=== PATIENT | female | born 1985 | race Caucasian/White ===

== ENCOUNTER 2016-05-18 21:19 | Emergency (ER) | payer BC, MEDICAID ==
[2016-05-18 22:13] VITALS: BP 132/85
[2016-05-18] MEDS ORDERED: Iopamidol 612 MG/ML 100 ML Bottle IV SCH (22:30)
[2016-05-18] MEDS ORDERED: Sodium Chloride 0.9% 80 ML IV SCH (22:30)
[2016-05-18] MEDS: Sodium Chloride 0.9% 10 ML Syringe FLUSH PRN ×2 (22:36→22:53)
--- NOTE | 2016-05-19 00:26 | EDM.PDOC ---
ED HPI ENT - General Chief Complaint: ENT Problem Stated Complaint: ILLNESS Time Seen by Provider: 05/18/16 22:12 Source: Reports: Patient History Limitations: Reports: No limitations - History of Present Illness INITIAL COMMENTS - FREE TEXT/NARRATIVE: History of present illness: [30-year-old female is presenting with complaints of a sore throat and lymphadenopathy of her neck. She's been on Zithromax and Keflex to treat this and feels that she is not getting better and is getting more swollen. She had a fever of 103 last night to this. She denies any shortness of breath or swallowing difficulties. She denies any dysphasia.] Review of systems: As per history of present illness and below otherwise all systems reviewed and negative. Past medical history: As per history of present illness and as reviewed below otherwise noncontributory. Surgical history: As per history of present illness and as reviewed below otherwise noncontributory. Social history: No reported history of drug or alcohol abuse. Family history: As per history of present illness and as reviewed below otherwise noncontributory. Physical exam: HEENT: Atraumatic, normocephalic, pupils reactive, negative for conjunctival pallor or scleral icterus, mucous membranes moist, throat clear, neck supple but bulky, with some shotty anterior lymphadenopathy nontender, trachea midline. Lungs: Clear to auscultation, breath sounds equal bilaterally, chest nontender. Heart: S1S2, regular, negative for clicks, rubs, or JVD. Abdomen: Soft, nondistended, nontender. Negative for masses or hepatosplenomegaly. Negative for costovertebral tenderness. Pelvis: Stable nontender. Genitourinary: Deferred. Rectal: Deferred. Extremities: Atraumatic, negative for cords or calf pain. Neurovascular unremarkable. Neuro: Awake, alert, oriented. Cranial nerves II through XII unremarkable. Cerebellum unremarkable. Motor and sensory unremarkable throughout. Exam nonfocal. Diagnostics: [CBC complete panel and a soft tissue neck CT were obtained. CT of the neck was essentially unremarkable with no evidence of pus pockets or abscess] Therapeutics: [] Impression: [Mild pharyngitis with lymphadenitis] Plan: [Continue with the Keflex but I'm putting her on tapering doses of prednisone to help with the inflammation she's experiencing from this illness.] Definitive disposition and diagnosis as appropriate pending reevaluation and review of above. - Related Data Allergies/ADRs: Allergies Allergy/AdvReac Type Severity Reaction Status Date / Time codeine Allergy Hives Verified 09/27/15 15:01 Penicillins Allergy Hives Verified 09/27/15 15:01 Home Meds: Home Meds Metoprolol Tartrate [Lopressor] 12.5 mg PO BID 01/22/14 [History] Amitriptyline [Elavil] 10 mg PO BEDTIME 08/11/14 [History] Aspirin [Rayne Chewable Aspirin] 81 mg PO DAILY 08/11/14 [History] Acetaminophen/HYDROcodone [[place] 325-5 MG] 1 - 2 tab PO Q6H PRN #12 tab [Rx] FLUoxetine [PROzac] 60 mg PO DAILY 01/12/15 [History] clonazePAM [Clonazepam] 0.5 mg PO BID PRN 09/27/15 [History] Past Medical History Cardiovascular History: Reports: Heart valve replacement, Other (see below) Other Cardiovascular History: Congenital heart defect Genitourinary History: Reports: Renal calculus 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: Neurological History: Reports: Migraines Psychiatric History: Reports: Anxiety, Depression Endocrine/Metabolic History: Reports: Obesity/BMI 30+ Hematologic History: Reports: Blood transfusion(s) - Infectious Disease History Infectious Disease History: Reports: Chicken pox - Past Surgical History HEENT Surgical History: Reports: Tonsillectomy Cardiovascular Surgical History: Reports: Valve replacement GI Surgical History: Reports: Cholecystectomy Social & Family History - Family History Cardiac: Reports: [place], [place] : Reports: Renal disease/insufficiency Endocrine/Metabolic: Reports: Diabetes, type II, IDDM - Tobacco Use Smoking Status *Q: Never Smoker Years of Tobacco use: 2 Used Tobacco, but Quit: Yes Month Tobacco Last Used: Second Hand Smoke Exposure: No - Caffeine Use Caffeine Use: Reports: None - Alcohol Use Days Per Week of Alcohol Use: 0 Number of Drinks Per Day: 1 Total Drinks Per Week: 0 - Recreational Drug Use Recreational Drug Use: No ED ROS ENT - Review of Systems Review Of Systems: ROS reveals no pertinent complaints other than HPI. ED EXAM, ENT - Physical Exam Exam: See Below Course - Vital Signs Last Recorded V/S: Last Vital Signs Temp 37.0 C 05/18/16 22:12 Pulse 98 05/18/16 22:12 Resp 20 05/18/16 22:12 BP 132/85 05/18/16 22:12 Pulse Ox 98 05/18/16 22:12 - Orders/Labs/Meds Orders: Active Orders 24 hr Category Date Time Status Soft Tissue Neck w Cont [CT] Stat Exams 05/18/16 22:20 Taken Iopamidol [Isovue-300 (61%)] Med 05/18/16 22:30 Active 100 ml IV . DIRECTED Sodium Chloride 0.9% [Normal Saline] 80 ml Med 05/18/16 22:30 Active IV ASDIRECTED Sodium Chloride 0.9% [Saline Flush] Med 05/18/16 22:28 Active 10 ml FLUSH ASDIRECTED PRN Medication Orders Sodium Chloride (Normal Saline) 80 mls @ 3 mls/sec IV ASDIRECTED JESSEE Last Admin: 05/18/16 22:53 Dose: 3 mls/sec Iopamidol (Isovue-300 (61%)) 100 ml IV . DIRECTED JESSEE Last Admin: 05/18/16 22:53 Dose: 100 ml Sodium Chloride (Saline Flush) 10 ml FLUSH ASDIRECTED PRN PRN Reason: Keep Vein Open Last Admin: 05/18/16 22:53 Dose: 10 ml Admin: 05/18/16 22:36 Dose: 10 ml Labs: Laboratory Tests 05/18/16 05/18/16 Range/Units 22:19 22:32 WBC 8.8 (4.5-11.0) K/uL RBC 4.40 (3.30-5.50) M/uL Hgb 12.6 (12.0-15.0) g/dL Hct 37.8 (36.0-48.0) % MCV 86 (80-98) fL MCH 29 (27-31) pg MCHC 33 (32-36) % Plt Count 195 (150-400) K/uL Neut % (Auto) 54 (36-66) % Lymph % (Auto) 34 (24-44) % [place] % (Auto) 8 H (2-6) % Eos % (Auto) 3 (2-4) % Baso % (Auto) 1 (0-1) % Sodium 144 (140-148) mmol/L Potassium 3.7 (3.6-5.2) mmol/L Chloride 107 (100-108) mmol/L Carbon Dioxide 29 (21-32) mmol/L Anion Gap 8.5 (5.0-14.0) mmol/L BUN 13 (7-18) mg/dL Creatinine 0.9 (0.6-1.0) mg/dL Est Cr Clr Drug Dosing 86.34 mL/min Estimated GFR (MDRD) > 60 (>60) Glucose 110 H (74-106) mg/dL Calcium 8.4 L (8.5-10.1) mg/dL Total Bilirubin 0.6 (0.2-1.0) mg/dL AST 25 (15-37) U/L ALT 53 (12-78) U/L Alkaline Phosphatase 96 (46-116) U/L Total Protein 7.7 (6.4-8.2) g/dL Albumin 3.6 (3.4-5.0) g/dL Globulin 4.1 H (2.3-3.5) g/dL Albumin/Globulin Ratio 0.9 L (1.2-2.2) Meds: Medications Generic Name Dose Route Start Last Admin Trade Name Freq PRN Reason Stop Dose Admin Sodium Chloride 80 mls @ 3 mls/sec 05/18/16 22:30 05/18/16 22:53 Normal Saline IV 3 mls/sec ASDIRECTED JESSEE Administration Iopamidol 100 ml 05/18/16 22:30 05/18/16 22:53 Isovue-300 (61%) IV 100 ml . DIRECTED JESSEE Administration Sodium Chloride 10 ml 05/18/16 22:28 05/18/16 22:53 Saline Flush FLUSH 10 ml ASDIRECTED PRN Administration Keep Vein Open Departure - Departure Time of Disposition: 00:24 Disposition: Home, Self-Care 01 Condition: good Clinical Impression: Lymphadenitis Pharyngitis Qualifiers: Pharyngitis/tonsillitis etiology: unspecified etiology Qualified Code(s): J02.9 - Acute pharyngitis, unspecified Forms: ED Department Discharge Additional Instructions: Continue with your current antibiotics and we will start you on a tapering dose of prednisone but should help with the pain and inflammation that you're experiencing. Followup with her primary care doctor if you are not improving in the next week or so - My Orders Last 24 Hours: My Active Orders 05/18/16 22:20 Soft Tissue Neck w Cont [CT] Stat 05/18/16 22:28 Sodium Chloride 0.9% [Saline Flush] 10 ml FLUSH ASDIRECTED PRN 05/18/16 22:30 Iopamidol [Isovue-300 (61%)] 100 ml IV . DIRECTED Sodium Chloride 0.9% [Normal Saline] 80 ml IV ASDIRECTED - Assessment/Plan Last 24 Hours: My Active Orders 05/18/16 22:20 Soft Tissue Neck w Cont [CT] Stat 05/18/16 22:28 Sodium Chloride 0.9% [Saline Flush] 10 ml FLUSH ASDIRECTED PRN 05/18/16 22:30 Iopamidol [Isovue-300 (61%)] 100 ml IV . DIRECTED Sodium Chloride 0.9% [Normal Saline] 80 ml IV ASDIRECTED
== END 2016-05-19 00:35 | disposition home or self-care (01) ==
LOC: JP.ED 21:19
DX: I88.9 Nonspecific lymphadenitis, unspecified (principal); J02.9 Acute pharyngitis, unspecified; F41.9 Anxiety disorder, unspecified; F32.9 Major depressive disorder, single episode, unspecified; E66.9 Obesity, unspecified; Z68.41 Body mass index [BMI] 40.0-44.9, adult; Z95.2 Presence of prosthetic heart valve; Z90.49 Acquired absence of other specified parts of digestive tract; Z98.890 Other specified postprocedural states; Z79.82 Long term (current) use of aspirin; Z79.899 Other long term (current) drug therapy; Z88.0 Allergy status to penicillin; Z88.5 Allergy status to narcotic agent
CPT/HCPCS: 36415; 70491; 80053; 85025; 99284; J7030; J7050; Q9967; 99283

== ENCOUNTER 2017-05-24 11:45 | Emergency (ER) | payer BC, MEDICAID ==
[2017-05-24] MEDS ORDERED: Sodium Chloride 0.9% 1,000 ML IV SCH ×2 (12:30→14:45)
--- NOTE | 2017-05-24 12:40 | EDM.PDOC ---
ED HPI GENERAL MEDICAL PROBLEM - General Chief Complaint: General Stated Complaint: FEVER, CHEST PAIN, COUGH Time Seen by Provider: 05/24/17 12:40 Source of Information: Reports: Patient History Limitations: Reports: No Limitations - History of Present Illness INITIAL COMMENTS - FREE TEXT/NARRATIVE: pt arrived with pain in hr head. She hs had severe headaches for about 10 days. She has been doing ome vomiting. She hurts everywhere. She has had a 8 day course of doxycyline . with no improvement in the fever and body aches. She has had elvated liver enzymes in all of her lab work. Onset: Gradual, Other (Ill for 10 ) Duration: Day(s): Location: Reports: Generalized Associated Symptoms: Reports: Cough, Fever/Chills, Headaches, Malaise, Nausea/ Vomiting, Weakness - Related Data Allergies Allergy/AdvReac Type Severity Reaction Status Date / Time codeine Allergy Hives Verified 09/27/15 15:01 Penicillins Allergy Hives Verified 09/27/15 15:01 Home Meds: Home Meds Metoprolol Tartrate [Lopressor] 12.5 mg PO BID 01/22/14 [History] Amitriptyline [Elavil] 10 mg PO BEDTIME 08/11/14 [History] Aspirin [Rayne Chewable Aspirin] 81 mg PO DAILY 08/11/14 [History] Acetaminophen/HYDROcodone [[place] 325-5 MG] 1 - 2 tab PO Q6H PRN #12 tab [Rx] FLUoxetine [PROzac] 60 mg PO DAILY 01/12/15 [History] clonazePAM [Clonazepam] 0.5 mg PO BID PRN 09/27/15 [History] Past Medical History Cardiovascular History: Reports: Heart Valve Replacement, Other (See Below) Other Cardiovascular History: Congenital heart defect Genitourinary History: Reports: Renal Calculus 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: Neurological History: Reports: Migraines Psychiatric History: Reports: Anxiety, Depression Endocrine/Metabolic History: Reports: Obesity/BMI 30+ Hematologic History: Reports: Blood Transfusion(s) - Infectious Disease History Infectious Disease History: Reports: Chicken Pox - Past Surgical History Cardiovascular Surgical History: Reports: Valve Replacement Social & Family History - Family History Cardiac: Reports: [place], [place] : Reports: Renal Disease/Insufficiency Endocrine/Metabolic: Reports: Diabetes, type II, IDDM - Tobacco Use Smoking Status *Q: Never Smoker Years of Tobacco use: 2 Used Tobacco, but Quit: Yes Month/Year Tobacco Last Used: Second Hand Smoke Exposure: No - Caffeine Use Caffeine Use: Reports: None - Alcohol Use Days Per Week of Alcohol Use: 0 Number of Drinks Per Day: 1 Total Drinks Per Week: 0 - Recreational Drug Use Recreational Drug Use: No ED ROS GENERAL - Review of Systems Review Of Systems: See Below Constitutional: Reports: Fever, Chills, Malaise, Weakness, Decreased Appetite HEENT: Reports: No Symptoms Respiratory: Reports: Cough Cardiovascular: Reports: Palpitations, Other (pt felt like her heart was racing. ) Endocrine: Reports: No Symptoms GI/Abdominal: Reports: Nausea, Vomiting : Reports: No Symptoms, Urgency Musculoskeletal: Reports: Other (generalized ) Neurological: Reports: Dizziness, Headache ED EXAM, GENERAL - Physical Exam Exam: See Below Free Text/Narrative:: pt arrived with pain in head and a high temp She has had elevated liver enzymes. She has had total body aches. She did take 8 days of doxycyline for a possible tick born illness. Exam Limited By: No Limitations General Appearance: Alert, Anxious, Moderate Distress Ears: Normal TMs Nose: Normal Inspection Throat/Mouth: Normal Inspection Head: Atraumatic Neck: Normal Inspection Respiratory/Chest: No Respiratory Distress, Other (pt is hyperventilating. ) Cardiovascular: Regular Rate, Rhythm, Tachycardia, Other ( heart rate is 120. ) GI/Abdominal: Soft, Non-Tender (Female) Exam: Deferred Rectal (Female) Exam: Deferred Back Exam: Normal Inspection Extremities: Normal Inspection Neurological: Alert, Oriented, Normal Cognition Psychiatric: Anxious, Other ( crying. ) Course - Vital Signs Last Recorded V/S: Last Vital Signs Temp 101.7 C H 05/24/17 12:54 Pulse 103 H 05/24/17 14:00 Resp 24 H 05/24/17 14:00 BP 127/76 05/24/17 14:00 Pulse Ox 97 05/24/17 14:00 - Orders/Labs/Meds Orders: Active Orders 24 hr Category Date Time Status Cardiac Monitoring [RC] .As Directed Care 05/24/17 12:43 Active Abdomen Ltd [US] Stat Exams 05/24/17 15:01 Ordered CELL COUNT,CSF [BF] Stat Lab 05/24/17 14:07 Ordered CHLORIDE,CSF [BF] Stat Lab 05/24/17 14:07 COMP CULTURE BLOOD [BC] Urgent Lab 05/24/17 12:28 Received CULTURE BLOOD [BC] Urgent Lab 05/24/17 12:41 Received CULTURE CSF + SMEAR [RM] Stat Lab 05/24/17 14:19 Ordered CULTURE URINE [RM] Stat Lab 05/24/17 14:59 Ordered GLUCOSE,CSF [BF] Stat Lab 05/24/17 14:07 COMP UA W/MICROSCOPIC [URIN] Urgent Lab 05/24/17 12:25 Ordered Sodium Chloride 0.9% [Normal Saline] 1,000 ml Med 05/24/17 12:30 Active IV ASDIRECTED Sodium Chloride 0.9% [Normal Saline] 1,000 ml Med 05/24/17 12:30 Active IV ASDIRECTED Sodium Chloride 0.9% [Normal Saline] 1,000 ml Med 05/24/17 14:45 Active IV ASDIRECTED Blood Culture x2 Reflex Set [OM.PC] Urgent Oth 05/24/17 12:26 Ordered Medication Orders Sodium Chloride (Normal Saline) 1,000 mls @ 999 mls/hr IV ASDIRECTED JESSEE Last Admin: 05/24/17 14:46 Dose: 999 mls/hr Infusion: 05/24/17 14:00 Dose: 999 mls/hr Admin: 05/24/17 12:59 Dose: 999 mls/hr Sodium Chloride (Normal Saline) 1,000 mls @ 999 mls/hr IV ASDIRECTED JESSEE Last Admin: 05/24/17 14:47 Dose: 999 mls/hr Sodium Chloride (Normal Saline) 1,000 mls @ 300 mls/hr IV ASDIRECTED JESSEE Last Admin: 05/24/17 14:44 Dose: 300 mls/hr Labs: Laboratory Tests 05/24/17 05/24/17 05/24/17 Range/Units 12:25 12:28 12:28 WBC 11.1 H (4.5-11.0) K/uL RBC 4.22 (3.30-5.50) M/uL Hgb 11.7 L (12.0-15.0) g/dL Hct 35.8 L (36.0-48.0) % MCV 85 (80-98) fL MCH 28 (27-31) pg MCHC 33 (32-36) % Plt Count 171 (150-400) K/uL Neut % (Auto) 83 H (36-66) % Lymph % (Auto) 7 L (24-44) % [place] % (Auto) 10 H (2-6) % Eos % (Auto) 0 L (2-4) % Baso % (Auto) 0 (0-1) % Sodium (140-148) mmol/L Potassium (3.6-5.2) mmol/L Chloride (100-108) mmol/L Carbon Dioxide (21-32) mmol/L Anion Gap (5.0-14.0) mmol/L BUN (7-18) mg/dL Creatinine (0.6-1.0) mg/dL Est Cr Clr Drug Dosing mL/min Estimated GFR (MDRD) (>60) Glucose (74-106) mg/dL Lactic Acid (0.4-2.0) mmol/L Calcium (8.5-10.1) mg/dL Total Bilirubin (0.2-1.0) mg/dL AST (15-37) U/L ALT (12-78) U/L Alkaline Phosphatase (46-116) U/L C-Reactive Protein 9.89 H (0.0-0.3) mg/dL Total Protein (6.4-8.2) g/dL Albumin (3.4-5.0) g/dL Globulin (2.3-3.5) g/dL Albumin/Globulin Ratio (1.2-2.2) Lipase (73-393) U/L Urine Color Yellow Urine Appearance Clear Urine pH 8.0 (4.5-8.0) Ur Specific [place] 1.015 (1.008-1.030) Urine Protein Negative (NEGATIVE) mg/dL Urine Glucose (UA) Normal (NEGATIVE) mg/dL Urine Ketones Negative (NEGATIVE) mg/dL Urine Occult Blood Negative (NEGATIVE) Urine Nitrite Negative (NEGATIVE) Urine Bilirubin Negative (NEGATIVE) Urine Urobilinogen Normal (NORMAL) mg/dL Ur Leukocyte Esterase Negative (NEGATIVE) Urine RBC Not seen (0-5) Urine WBC 5-10 H (0-5) Ur Epithelial Cells Few Amorphous Sediment Few Urine Bacteria Many Urine Mucus Few CSF Tube Number CSF Volume mls CSF Appearance (CLEAR) CSF Color (COLORLESS) CSF WBC (0-5) /ul CSF RBC (0-0) /ul CSF Mononuclear Cells (54-100) % CSF Polymorphonuclear (0-7) % CSF Chloride mg/DL CSF Glucose (40-70) mg/dL CSF Total Protein (15-45) mg/dL 05/24/17 05/24/17 05/24/17 Range/Units 12:28 12:28 13:19 WBC (4.5-11.0) K/uL RBC (3.30-5.50) M/uL Hgb (12.0-15.0) g/dL Hct (36.0-48.0) % MCV (80-98) fL MCH (27-31) pg MCHC (32-36) % Plt Count (150-400) K/uL Neut % (Auto) (36-66) % Lymph % (Auto) (24-44) % [place] % (Auto) (2-6) % Eos % (Auto) (2-4) % Baso % (Auto) (0-1) % Sodium 132 L (140-148) mmol/L Potassium 4.1 (3.6-5.2) mmol/L Chloride 96 L (100-108) mmol/L Carbon Dioxide 25 (21-32) mmol/L Anion Gap 15.1 H (5.0-14.0) mmol/L BUN 10 (7-18) mg/dL Creatinine 0.8 (0.6-1.0) mg/dL Est Cr Clr Drug Dosing 92.53 mL/min Estimated GFR (MDRD) > 60 (>60) Glucose 139 H (74-106) mg/dL Lactic Acid 2.1 H (0.4-2.0) mmol/L Calcium 8.8 (8.5-10.1) mg/dL Total Bilirubin 2.1 H D (0.2-1.0) mg/dL AST 60 H D (15-37) U/L ALT 104 H (12-78) U/L Alkaline Phosphatase 122 H (46-116) U/L C-Reactive Protein (0.0-0.3) mg/dL Total Protein 7.7 (6.4-8.2) g/dL Albumin 3.3 L (3.4-5.0) g/dL Globulin 4.4 H (2.3-3.5) g/dL Albumin/Globulin Ratio 0.8 L (1.2-2.2) Lipase 83 (73-393) U/L Urine Color Urine Appearance Urine pH (4.5-8.0) Ur Specific [place] (1.008-1.030) Urine Protein (NEGATIVE) mg/dL Urine Glucose (UA) (NEGATIVE) mg/dL Urine Ketones (NEGATIVE) mg/dL Urine Occult Blood (NEGATIVE) Urine Nitrite (NEGATIVE) Urine Bilirubin (NEGATIVE) Urine Urobilinogen (NORMAL) mg/dL Ur Leukocyte Esterase (NEGATIVE) Urine RBC (0-5) Urine WBC (0-5) Ur Epithelial Cells Amorphous Sediment Urine Bacteria Urine Mucus CSF Tube Number CSF Volume mls CSF Appearance (CLEAR) CSF Color (COLORLESS) CSF WBC (0-5) /ul CSF RBC (0-0) /ul CSF Mononuclear Cells (54-100) % CSF Polymorphonuclear (0-7) % CSF Chloride mg/DL CSF Glucose (40-70) mg/dL CSF Total Protein (15-45) mg/dL 05/24/17 05/24/17 05/24/17 Range/Units 14:07 14:07 14:44 WBC (4.5-11.0) K/uL RBC (3.30-5.50) M/uL Hgb (12.0-15.0) g/dL Hct (36.0-48.0) % MCV (80-98) fL MCH (27-31) pg MCHC (32-36) % Plt Count (150-400) K/uL Neut % (Auto) (36-66) % Lymph % (Auto) (24-44) % [place] % (Auto) (2-6) % Eos % (Auto) (2-4) % Baso % (Auto) (0-1) % Sodium (140-148) mmol/L Potassium (3.6-5.2) mmol/L Chloride (100-108) mmol/L Carbon Dioxide (21-32) mmol/L Anion Gap (5.0-14.0) mmol/L BUN (7-18) mg/dL Creatinine (0.6-1.0) mg/dL Est Cr Clr Drug Dosing mL/min Estimated GFR (MDRD) (>60) Glucose (74-106) mg/dL Lactic Acid (0.4-2.0) mmol/L Calcium (8.5-10.1) mg/dL Total Bilirubin (0.2-1.0) mg/dL AST (15-37) U/L ALT (12-78) U/L Alkaline Phosphatase (46-116) U/L C-Reactive Protein (0.0-0.3) mg/dL Total Protein (6.4-8.2) g/dL Albumin (3.4-5.0) g/dL Globulin (2.3-3.5) g/dL Albumin/Globulin Ratio (1.2-2.2) Lipase (73-393) U/L Urine Color Urine Appearance Urine pH (4.5-8.0) Ur Specific [place] (1.008-1.030) Urine Protein (NEGATIVE) mg/dL Urine Glucose (UA) (NEGATIVE) mg/dL Urine Ketones (NEGATIVE) mg/dL Urine Occult Blood (NEGATIVE) Urine Nitrite (NEGATIVE) Urine Bilirubin (NEGATIVE) Urine Urobilinogen (NORMAL) mg/dL Ur Leukocyte Esterase (NEGATIVE) Urine RBC (0-5) Urine WBC (0-5) Ur Epithelial Cells Amorphous Sediment Urine Bacteria Urine Mucus CSF Tube Number 2 CSF Volume 1 mls CSF Appearance Clear (CLEAR) CSF Color Colorless (COLORLESS) CSF WBC 2 (0-5) /ul CSF RBC 5 H (0-0) /ul CSF Mononuclear Cells 100 (54-100) % CSF Polymorphonuclear 0 (0-7) % CSF Chloride 117 mg/DL CSF Glucose 87 H (40-70) mg/dL CSF Total Protein 26.4 (15-45) mg/dL Meds: Medications Generic Name Dose Route Start Last Admin Trade Name Freq PRN Reason Stop Dose Admin Sodium Chloride 1,000 mls @ 999 mls/hr 05/24/17 12:30 05/24/17 14:46 Normal Saline IV 999 mls/hr ASDIRECTED JESSEE Administration Sodium Chloride 1,000 mls @ 999 mls/hr 05/24/17 12:30 05/24/17 14:47 Normal Saline IV 999 mls/hr ASDIRECTED JESSEE Administration Sodium Chloride 1,000 mls @ 300 mls/hr 05/24/17 14:45 05/24/17 14:44 Normal Saline IV 300 mls/hr ASDIRECTED JESSEE Administration Discontinued Medications Generic Name Dose Route Start Last Admin Trade Name Freq PRN Reason Stop Dose Admin Acetaminophen 650 mg 05/24/17 12:43 05/24/17 12:54 Tylenol PO 05/24/17 12:44 650 mg NOW ONE Administration Hydromorphone HCl 0.5 mg 05/24/17 13:14 05/24/17 13:24 Dilaudid IVPUSH 05/24/17 13:15 0.5 mg ONETIME ONE Administration Lorazepam 0.5 mg 05/24/17 13:13 05/24/17 13:22 Ativan PO 05/24/17 13:14 0.5 mg ONETIME ONE Administration - Re-Assessments/Exams Free Text/Narrative Re-Assessment/Exam: 05/24/17 15:34 pt has elevated liver enzymes, her lipase is neg, her urine has bacteria in it, Her wbc is 13,000. She is on her third liter of fluid and her heart rate has come down nicely, her spinal fluid shows cells.-- 100 mononuclear . Her gram stain is neg. blood cultures, urine cultures spinal fluid cultures are all neg. Departure - Departure Time of Disposition: 15:38 Disposition: DC/Tfer to Acute Hospital 02 Condition: Fair Clinical Impression: Sepsis, Meningitis, Dehydration, Elevated liver enzymes, History of aortic valve replacement - Discharge Information Referrals: Antoinette Lyon PA [Primary Care Provider] - Forms: ED Department Discharge Care Plan Goals: more records are at [facility], transfer to [facility]. - My Orders Last 24 Hours: My Active Orders 05/24/17 12:25 UA W/MICROSCOPIC [URIN] Urgent 05/24/17 12:26 Blood Culture x2 Reflex Set [OM.PC] Urgent 05/24/17 12:28 CULTURE BLOOD [BC] Urgent 05/24/17 12:30 Sodium Chloride 0.9% [Normal Saline] 1,000 ml IV ASDIRECTED Sodium Chloride 0.9% [Normal Saline] 1,000 ml IV ASDIRECTED 05/24/17 12:41 CULTURE BLOOD [BC] Urgent 05/24/17 12:43 Cardiac Monitoring [RC] .As Directed 05/24/17 14:07 CELL COUNT,CSF [BF] Stat CHLORIDE,CSF [BF] Stat GLUCOSE,CSF [BF] Stat 05/24/17 14:19 CULTURE CSF + SMEAR [RM] Stat 05/24/17 14:45 Sodium Chloride 0.9% [Normal Saline] 1,000 ml IV ASDIRECTED 05/24/17 14:59 CULTURE URINE [RM] Stat 05/24/17 15:01 Abdomen Ltd [US] Stat - Assessment/Plan Last 24 Hours: My Active Orders 05/24/17 12:25 UA W/MICROSCOPIC [URIN] Urgent 05/24/17 12:26 Blood Culture x2 Reflex Set [OM.PC] Urgent 05/24/17 12:28 CULTURE BLOOD [BC] Urgent 05/24/17 12:30 Sodium Chloride 0.9% [Normal Saline] 1,000 ml IV ASDIRECTED Sodium Chloride 0.9% [Normal Saline] 1,000 ml IV ASDIRECTED 05/24/17 12:41 CULTURE BLOOD [BC] Urgent 05/24/17 12:43 Cardiac Monitoring [RC] .As Directed 05/24/17 14:07 CELL COUNT,CSF [BF] Stat CHLORIDE,CSF [BF] Stat GLUCOSE,CSF [BF] Stat 05/24/17 14:19 CULTURE CSF + SMEAR [RM] Stat 05/24/17 14:45 Sodium Chloride 0.9% [Normal Saline] 1,000 ml IV ASDIRECTED 05/24/17 14:59 CULTURE URINE [RM] Stat 05/24/17 15:01 Abdomen Ltd [US] Stat
[2017-05-24] MEDS ORDERED: Acetaminophen 325 MG Tab PO ONE (12:43)
[2017-05-24] MEDS: Sodium Chloride 0.9% 1,000 ML IV SCH ×2 (12:59→14:46)
--- NOTE | 2017-05-24 13:02 | CR ---
Chest 1V Frontal HISTORY: Fever, cough. Comparison: 09/27/2015. FINDINGS: Prior median sternotomy. Cardiac size and pulmonary vessels are normal. The lungs are clear . IMPRESSION: Negative AP chest.
[2017-05-24] MEDS ORDERED: LORazepam 0.5 MG Tab PO ONE ×2 (13:13→15:14)
[2017-05-24] MEDS ORDERED: HYDROmorphone 0.5 MG/0.5 ML Syringe IVPUSH ONE (13:14)
[2017-05-24 14:12] VITALS: BP 127/76
--- NOTE | 2017-05-24 14:56 | ANES ---
DATE OF SERVICE: 05/24/2017 TIME: 1345 hours. INDICATION: I was called to the emergency room by Dr. Vincent to evaluate her for a spinal tap. She has had persistent headache and needs a diagnostic spinal tap. The risks and benefits of the procedure were explained to the patient who wished to proceed with spinal tap. DESCRIPTION OF PROCEDURE: She is laid in the left lateral decubitus position. I did place a 25-gauge Pencan spinal needle to L5-S1. I did find nice clear CSF. Initial pressures were 39.5 cm of water. I then got two tubes of cerebrospinal fluid and at that time the cerebrospinal fluid stopped flowing. I consulted with Dr. Vincent and we both elected to go ahead and just use two tubes due to the fact that the 3rd tube would then be contaminated. We agreed, she sent the sample. The needle was withdrawn. A Band-Aid applied. The patient tolerated the procedure very nicely. She is going to lie flat for about an hour. Her vital signs remained stable throughout the procedure and nurse was with me the entire period of procedure. There were no anesthesia complications noted. Greyson Angel CRNA /[id number]
[2017-05-24] MEDS ORDERED: Ibuprofen 400 MG Tab PO ONE (16:34)
[2017-05-24] MEDS ORDERED: Acetaminophen 650 MG Supp RECTAL ONE (16:35)
[2017-05-24] MEDS ORDERED: LORazepam 2 MG/ML SDV IVPUSH ONE (16:44)
[2017-05-24] MEDS ORDERED: Ondansetron 4 MG/2 ML SDV IVPUSH ONE (16:45)
--- NOTE | 2017-05-25 08:55 | US ---
Abdomen Ltd HISTORY: Elevated liver enzymes and bilirubin. COMPARISON: CT scan 09/10/2013. FINDINGS: There is diffuse fatty infiltration of liver. No focal liver lesions seen. Gallbladder has been removed. Common bile duct measures 6 mm. The pancreas and right kidney appear normal. Inferior v jaun cava is patent. No ascites. Impression: 1. Diffuse fatty infiltration of liver. Prior cholecystectomy. 2. The remainder the study is unremarkable.
== END 2017-05-24 17:02 ==
LOC: JP.ED 11:45
DX: A41.9 Sepsis, unspecified organism (principal); G03.9 Meningitis, unspecified; E86.0 Dehydration; R74.8 Abnormal levels of other serum enzymes; Z88.5 Allergy status to narcotic agent; Z88.0 Allergy status to penicillin; Z79.82 Long term (current) use of aspirin; Z79.899 Other long term (current) drug therapy; Z87.891 Personal history of nicotine dependence; Z95.2 Presence of prosthetic heart valve
CPT/HCPCS: 36415; 71045; 76705; 80053; 81001; 82438; 82945; 83605; 83690; 84157; 85025; 86140; 87040; 87070; 87077; 87086; 87186; 87205; 89050; 96361; 96374; 96375; 99285; A9270; J1170; J2060; J2405; J7040

== ENCOUNTER 2017-08-27 17:50 | Emergency (ER) | payer BC, MEDICAID ==
--- NOTE | 2017-08-27 18:29 | EDM.PDOC ---
ED HPI GENERAL MEDICAL PROBLEM - General Chief Complaint: Chest Pain Stated Complaint: STERNUM PAIN/OPEN HEART SURGERY Time Seen by Provider: 08/27/17 18:33 Source of Information: Reports: Patient History Limitations: Reports: No Limitations - History of Present Illness INITIAL COMMENTS - FREE TEXT/NARRATIVE: PT WAS TRANSFERED TO [place] IN june WITH A ENDOCARDITIS. sHE WAS FOUND TO HAVE A ABCESS ON THE VALVE AND NEEDED REPEAT SURGERY. sHE NOW HAS A MECHANIAL VALVE. sHE CONTINUES TO HAVE CHEST WALL PAIN Onset: Gradual, Other ( tHIS HAS GONE ON SINCE HER SURGERY. sHE IS NOW BACK AT WORK AT THE [employer] [facility] [place]. ) Duration: Hour(s):, Other (PT IS OUT OF HER PAIN MEDS AND SHJE DISD TRY TO REACH [facility]) Location: Reports: Chest Associated Symptoms: Reports: Chest Pain Mid-Sternal Pain Score (Numeric/FACES): 5 - Related Data Allergies Allergy/AdvReac Type Severity Reaction Status Date / Time codeine Allergy Hives Verified 07/10/17 12:27 Penicillins Allergy Hives Verified 07/10/17 12:27 Home Meds: Home Meds Metoprolol Tartrate [Lopressor] 50 mg PO BID 01/22/14 [History] Amitriptyline [Elavil] 10 mg PO BEDTIME 08/11/14 [History] FLUoxetine [PROzac] 60 mg PO DAILY 01/12/15 [History] clonazePAM [Clonazepam] 0.5 mg PO TID 09/27/15 [History] Calcium Carbonate [Calcium] 500 mg PO Q4H PRN 06/19/17 [History] Cyclobenzaprine [Flexeril] 10 mg PO TID PRN 06/19/17 [History] Furosemide [Lasix] 40 mg PO BID 06/19/17 [History] Hydrocodone/Acetaminophen [[place] 10-325 Tablet] 1 each PO Q4H PRN 06/19/17 [ History] Lisinopril 10 mg PO DAILY 06/19/17 [History] Omeprazole 20 mg PO DAILY 06/19/17 [History] Potassium Chloride 20 meq PO BID 06/19/17 [History] Warfarin [Coumadin] 5 mg PO DAILY 06/19/17 [History] metFORMIN [Glucophage XR] 500 mg PO DAILY 06/19/17 [History] Past Medical History Cardiovascular History: Reports: Heart Valve Replacement, Other (See Below) Other Cardiovascular History: Congenital heart defect Genitourinary History: Reports: Renal Calculus 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: Neurological History: Reports: Migraines Psychiatric History: Reports: Anxiety, Depression Endocrine/Metabolic History: Reports: Obesity/BMI 30+ Hematologic History: Reports: Blood Transfusion(s) - Infectious Disease History Infectious Disease History: Reports: Chicken Pox - Past Surgical History HEENT Surgical History: Reports: Tonsillectomy Cardiovascular Surgical History: Reports: Valve Replacement GI Surgical History: Reports: Cholecystectomy Social & Family History - Family History Cardiac: Reports: [place] : Reports: Renal Disease/Insufficiency Endocrine/Metabolic: Reports: Diabetes, type II, IDDM - Tobacco Use Smoking Status *Q: Never Smoker - Caffeine Use Caffeine Use: Reports: Coffee - Recreational Drug Use Recreational Drug Use: No ED ROS GENERAL - Review of Systems Review Of Systems: See Below Constitutional: Reports: No Symptoms, Other (PT IS DOING OK AND HAS BEEN STABLE. sHE DOES REMAIN ON CEPHELEXIN) HEENT: Reports: No Symptoms Respiratory: Reports: No Symptoms Cardiovascular: Reports: No Symptoms Endocrine: Reports: No Symptoms GI/Abdominal: Reports: No Symptoms : Reports: No Symptoms Musculoskeletal: Reports: No Symptoms Skin: Reports: No Symptoms ED EXAM, GENERAL - Physical Exam Exam: See Below Free Text/Narrative:: pT ARRIVED WITH CHEST WALL PAIN WHICH HAS BEEN PERSISTENT SINCE HER SURGERY. Exam Limited By: No Limitations General Appearance: Alert, Anxious, Mild Distress Ears: Normal TMs Nose: Normal Inspection Throat/Mouth: Normal Inspection Head: Atraumatic Neck: Normal Inspection Respiratory/Chest: No Respiratory Distress Cardiovascular: Regular Rate, Rhythm, Other ( TYPICAL VALVULAR SOUND) GI/Abdominal: Soft, Non-Tender Rectal (Female) Exam: Deferred Back Exam: Normal Inspection Extremities: Normal Inspection Neurological: Alert, Oriented, Normal Cognition Psychiatric: Normal Affect Course - Vital Signs Last Recorded V/S: Last Vital Signs Temp 36.2 C 08/27/17 18:03 Pulse 81 08/27/17 18:03 Resp 16 08/27/17 18:03 BP 129/76 08/27/17 18:03 Pulse Ox 96 08/27/17 18:03 Departure - Departure Time of Disposition: 18:28 Disposition: Home, Self-Care 01 Condition: Fair Clinical Impression: Chest wall pain, H/O aortic valve replacement Referrals: Antoinette Lyon PA [Primary Care Provider] - Forms: ED Department Discharge Care Plan Goals: CONT TOFOLLOW WITH [facility] Q6H PRN FOR PAIN #8
[2017-08-27 18:52] VITALS: BP 100/55
== END 2017-08-27 18:54 | disposition home or self-care (01) ==
LOC: JP.ED 17:50
DX: R07.89 Other chest pain (principal); Z95.2 Presence of prosthetic heart valve; F41.9 Anxiety disorder, unspecified; F32.9 Major depressive disorder, single episode, unspecified; Z79.01 Long term (current) use of anticoagulants; Z79.899 Other long term (current) drug therapy; Z88.8 Allergy status to other drugs, medicaments and biological substances; Z88.5 Allergy status to narcotic agent; Z88.0 Allergy status to penicillin
CPT/HCPCS: 99285

== ENCOUNTER 2019-02-27 10:20 | Emergency (ER) | payer BC, MEDICAID ==
--- NOTE | 2019-02-27 11:11 | EDM.PDOC ---
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 Over the last 3 weeks she has had persistent recurring fevers, and has been on 2 courses of Zithromax as well as her chronic cephalexin. She felt better during the first course of Zithromax, the second she did not have much improvement. She currently has a runny nose, upper chest congestion and a cough, headache, and generalized body aches especially the right knee. No nausea or vomiting, no significant shortness of breath. She is very anxious because of her history. 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 She has been screened for influenza and strep throat over the last 3 weeks. Her temperature was 103 this morning, however it is broken and she is now diaphoretic with a normal temperature. Other vitals are normal as well. Onset: Unknown/Unsure Associated Symptoms: Reports: Cough, Fever/Chills, Headaches, Malaise, Other ( Rhinitis) Generalized Pain Score (Numeric/FACES): 10 - Related Data Allergies Allergy/AdvReac Type Severity Reaction Status Date / Time Penicillins Allergy Hives Verified 02/27/19 10:43 Home Meds: Home Meds Metoprolol Tartrate [Lopressor] 50 mg PO BID 01/22/14 [History] Amitriptyline [Elavil] 10 mg PO BEDTIME 08/11/14 [History] FLUoxetine [PROzac] 20 mg PO DAILY 01/12/15 [History] clonazePAM [Clonazepam] 0.5 mg PO TID PRN 09/27/15 [History] Cyclobenzaprine [Flexeril] 10 mg PO TID PRN 06/19/17 [History] Furosemide [Lasix] 10 mg PO DAILY 06/19/17 [History] Hydrocodone/Acetaminophen [[place] 10-325 Tablet] 1 each PO Q4H PRN 06/19/17 [ History] Lisinopril 10 mg PO DAILY 06/19/17 [History] Omeprazole 20 mg PO DAILY 06/19/17 [History] Warfarin [Coumadin] 5 mg PO DAILY 06/19/17 [History] metFORMIN [Glucophage XR] 500 mg PO DAILY 06/19/17 [History] Aspirin [Adult Aspirin] 81 mg PO DAILY 12/10/17 [History] Warfarin Sodium [Coumadin] 7.5 mg PO DAILY 02/27/19 [History] Past Medical History Cardiovascular History: Reports: Heart Valve Replacement, Other (See Below) Other Cardiovascular History: Congenital heart defect endocarditis 2 years ago Genitourinary History: Reports: Renal Calculus 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: Neurological History: Reports: Migraines Psychiatric History: Reports: Anxiety, Depression Endocrine/Metabolic History: Reports: Obesity/BMI 30+ Hematologic History: Reports: Blood Transfusion(s) - Infectious Disease History Infectious Disease History: Reports: Chicken Pox - Past Surgical History HEENT Surgical History: Reports: Tonsillectomy Cardiovascular Surgical History: Reports: Valve Replacement GI Surgical History: Reports: Cholecystectomy Social & Family History - Family History Cardiac: Reports: [place] : Reports: Renal Disease/Insufficiency Endocrine/Metabolic: Reports: Diabetes, type II, IDDM - Tobacco Use Smoking Status *Q: Never Smoker Second Hand Smoke Exposure: No - Caffeine Use Caffeine Use: Reports: Coffee - Recreational Drug Use Recreational Drug Use: No ED ROS GENERAL - Review of Systems Review Of Systems: See Below Constitutional: Reports: Fever, Chills, Malaise HEENT: Reports: Rhinitis. Denies: Ear Pain, Throat Pain Respiratory: Reports: Cough, Sputum Cardiovascular: Reports: Chest Pain (Especially with coughing) GI/Abdominal: Reports: No Symptoms Musculoskeletal: Reports: Other (Right knee has been hurting for the last 2 days ) Skin: Reports: Diaphoresis Neurological: Reports: Headache Psychiatric: Reports: Anxiety ED EXAM, GENERAL - Physical Exam Exam: See Below Exam Limited By: No Limitations General Appearance: Alert, No Apparent Distress Eye Exam: Bilateral Eye: Normal Inspection Throat/Mouth: Normal Inspection Head: Atraumatic Neck: Supple Respiratory/Chest: No Respiratory Distress, Lungs Clear, Other (Large well- healed surgical scar on the anterior chest) Cardiovascular: Regular Rate, Rhythm, Systolic Murmur (Faint systolic murmur and a click from the artificial valve is heard) Extremities: Normal Inspection, Other (Some mild tenderness to palpation around the right knee but no objective visual findings, no effusion, redness, swelling or warmth) Course - Vital Signs Last Recorded V/S: Last Vital Signs Temp 98.1 F 02/27/19 14:07 Pulse 80 02/27/19 14:07 Resp 16 02/27/19 14:07 BP 89/47 L 02/27/19 14:07 Pulse Ox 97 02/27/19 14:07 - Orders/Labs/Meds Orders: Active Orders 24 hr Category Date Time Status Echo Comp wo Cont [US] Stat Exams 02/27/19 12:05 Taken CULTURE BLOOD [BC] Urgent Lab 02/27/19 11:10 Received CULTURE BLOOD [BC] Urgent Lab 02/27/19 11:17 Received Blood Culture x2 Reflex Set [OM.PC] Urgent Oth 02/27/19 10:58 Ordered Labs: Laboratory Tests 02/27/19 02/27/19 Range/Units 11:17 11:17 WBC 7.4 (4.5-11.0) K/uL RBC 3.41 (3.30-5.50) M/uL Hgb 9.8 L (12.0-15.0) g/dL Hct 31.0 L (36.0-48.0) % MCV 91 (80-98) fL MCH 29 (27-31) pg MCHC 32 (32-36) % Plt Count 181 (150-400) K/uL Neut % (Auto) 80 H (36-66) % Lymph % (Auto) 11 L (24-44) % [place] % (Auto) 8 H (2-6) % Eos % (Auto) 0 L (2-4) % Baso % (Auto) 0 (0-1) % Sodium 137 L (140-148) mmol/L Potassium 3.7 (3.6-5.2) mmol/L Chloride 100 (100-108) mmol/L Carbon Dioxide 27 (21-32) mmol/L Anion Gap 13.7 (5.0-14.0) mmol/L BUN 10 (7-18) mg/dL Creatinine 0.8 (0.6-1.0) mg/dL Est Cr Clr Drug Dosing 90.84 mL/min Estimated GFR (MDRD) > 60 (>60) Glucose 99 (74-106) mg/dL Calcium 8.3 L (8.5-10.1) mg/dL Total Bilirubin 1.1 H D (0.2-1.0) mg/dL AST 25 (15-37) U/L ALT 27 (12-78) U/L Alkaline Phosphatase 70 (46-116) U/L Total Protein 7.2 (6.4-8.2) g/dL Albumin 3.3 L (3.4-5.0) g/dL Globulin 3.9 H (2.3-3.5) g/dL Albumin/Globulin Ratio 0.9 L (1.2-2.2) Meds: Medications Discontinued Medications Generic Name Dose Route Start Last Admin Trade Name Freq PRN Reason Stop Dose Admin Hydromorphone HCl 1 mg 02/27/19 11:30 02/27/19 11:38 Dilaudid IM 02/27/19 11:31 1 mg ONETIME ONE Administration - Re-Assessments/Exams Free Text/Narrative Re-Assessment/Exam: 02/27/19 11:11 CBC CMP influenza antigens and blood cultures were obtained. Chest x-ray was shot recently so will not be repeated with a normal exam. 02/27/19 11:31 Influenza antigens are negative, white count is normal. Hemoglobin is 9.8, clinic records will be obtained for recent levels. 02/27/19 11:36 Clinic records were received, white count has been stable and normal. 2 weeks ago hemoglobin was 12.5, 8 days ago 11.3 and now 9.8 which is a disturbing trend. Awaiting for the remaining labs. 02/27/19 12:06 Had a long conversation with infectious disease, he also feels this is likely viral. An echocardiogram was recommended, fortunately she is here and available and can do one within the next hour to an hour and a half. This was ordered. Patient was given 1 mg of IM Dilaudid for her headache which was rapidly improving. 02/27/19 14:06 We were able to get an echocardiogram urgently, this was normal. She felt better after the Dilaudid as well. She was observed for almost 4 hours, fever did not return and she developed no shortness of breath. She will be discharged with viral bronchitis, and I encouraged her to return if worsening such as abdominal pain or active bleeding such as dark stools, otherwise recheck hemoglobin on Sunday. Departure - Departure Time of Disposition: 14:20 Disposition: Home, Self-Care 01 Clinical Impression: Viral bronchitis - Discharge Information Instructions: Acute Bronchitis, Adult, [id number] Referrals: Antoinette Lyon PA [Primary Care Provider] - Forms: ED Department Discharge Care Plan Goals: Continue with your current medications, cold medicines as needed and fever control for comfort. Return anytime if worsening such as increased pain, abdominal pain, dark stools or vomiting. Otherwise recheck on Sunday. Get plenty of rest and fluids. Sepsis Event Note - Evaluation Sepsis Screening Result: No Definite Risk - Focused Exam Vital Signs: Vital Signs Temp Pulse Resp BP Pulse Ox 02/27/19 14:07 98.1 F 80 16 89/47 L 97 02/27/19 12:03 97.1 F 77 16 97/57 L 97 02/27/19 10:38 98.9 F 85 24 H 105/53 L 94 L Date Exam was Performed: 02/27/19 Time Exam was Performed: 15:11 - My Orders Last 24 Hours: My Active Orders 02/27/19 10:58 Blood Culture x2 Reflex Set [OM.PC] Urgent 02/27/19 11:10 CULTURE BLOOD [BC] Urgent 02/27/19 11:17 CULTURE BLOOD [BC] Urgent 02/27/19 12:05 Echo Comp wo Cont [US] Stat - Assessment/Plan Last 24 Hours: My Active Orders 02/27/19 10:58 Blood Culture x2 Reflex Set [OM.PC] Urgent 02/27/19 11:10 CULTURE BLOOD [BC] Urgent 02/27/19 11:17 CULTURE BLOOD [BC] Urgent 02/27/19 12:05 Echo Comp wo Cont [US] Stat
[2019-02-27] MEDS ORDERED: HYDROmorphone 1 MG/ML Syringe IM ONE (11:30)
[2019-02-27 14:08] VITALS: BP 89/47; PULSE 80
== END 2019-02-27 14:20 | disposition home or self-care (01) ==
LOC: JP.ED 10:20
DX: J20.8 Acute bronchitis due to other specified organisms (principal); F41.9 Anxiety disorder, unspecified; F32.9 Major depressive disorder, single episode, unspecified; E66.9 Obesity, unspecified; Z68.39 Body mass index [BMI] 39.0-39.9, adult; Z88.0 Allergy status to penicillin; Z79.899 Other long term (current) drug therapy; Z79.01 Long term (current) use of anticoagulants; Z79.82 Long term (current) use of aspirin
CPT/HCPCS: 36415; 80053; 85025; 87040; 87077; 87804; 87804-59; 93306; 96372; 99284-25; J1170

== ENCOUNTER 2019-02-28 02:34 | Emergency (ER) | payer BC, MEDICAID ==
[2019-02-28] MEDS ORDERED: cefTRIAXone 2 GM in Sodium Chloride 0.9% 50 ML IV ONE (02:36)
--- NOTE | 2019-02-28 02:45 | EDM.PDOC ---
ED HPI GENERAL MEDICAL PROBLEM - General Chief Complaint: Possible Sepsis Stated Complaint: MEDICAL Time Seen by Provider: 02/28/19 02:40 Source of Information: Reports: Patient History Limitations: Reports: No Limitations - History of Present Illness INITIAL COMMENTS - FREE TEXT/NARRATIVE: pt was at or ER earlier today and she had blood cultures drawn because of temps on and off. She has a past history of endocarditis and pericardial abcess folloeing a valve replacement. She had blood cultures drawn earlier nd in less than 12 hours her 4 blood cultures are positive. She has been feeling very fatiqued. After she left the ER today she did spike another temp up to 102. She did have the valve replaced at [facility]. [facility] infectious disease -- Dr Hearn was contacted and he wanted the pt to come to the ER for admission. Onset: Gradual, Other (pt has been running temps for several days. ) Duration: Hour(s): Location: Reports: Generalized Associated Symptoms: Reports: Diaphoresis, Fever/Chills headache Pain Score (Numeric/FACES): 10 body aches Pain Score (Numeric/FACES): 10 - Related Data Allergies Allergy/AdvReac Type Severity Reaction Status Date / Time codeine Allergy Hives Verified 02/28/19 03:16 Penicillins Allergy Hives Verified 02/28/19 02:38 Home Meds: Home Meds Metoprolol Tartrate [Lopressor] 50 mg PO BID 01/22/14 [History] Amitriptyline [Elavil] 10 mg PO BEDTIME 08/11/14 [History] FLUoxetine [PROzac] 20 mg PO DAILY 01/12/15 [History] clonazePAM [Clonazepam] 0.5 mg PO TID PRN 09/27/15 [History] Cyclobenzaprine [Flexeril] 10 mg PO TID PRN 06/19/17 [History] Furosemide [Lasix] 10 mg PO DAILY 06/19/17 [History] Hydrocodone/Acetaminophen [[place] 10-325 Tablet] 1 each PO Q4H PRN 06/19/17 [ History] Lisinopril 10 mg PO DAILY 06/19/17 [History] Omeprazole 20 mg PO DAILY 06/19/17 [History] Warfarin [Coumadin] 5 mg PO DAILY 06/19/17 [History] metFORMIN [Glucophage XR] 500 mg PO DAILY 06/19/17 [History] Aspirin [Adult Aspirin] 81 mg PO DAILY 12/10/17 [History] Warfarin Sodium [Coumadin] 7.5 mg PO DAILY 02/27/19 [History] Past Medical History Cardiovascular History: Reports: Heart Valve Replacement, Other (See Below) Other Cardiovascular History: Congenital heart defect endocarditis 2 years ago Genitourinary History: Reports: Renal Calculus 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: Neurological History: Reports: Migraines Psychiatric History: Reports: Anxiety, Depression Endocrine/Metabolic History: Reports: Obesity/BMI 30+ Hematologic History: Reports: Blood Transfusion(s) - Infectious Disease History Infectious Disease History: Reports: Chicken Pox - Past Surgical History HEENT Surgical History: Reports: Tonsillectomy Cardiovascular Surgical History: Reports: Valve Replacement GI Surgical History: Reports: Cholecystectomy Social & Family History - Family History Cardiac: Reports: [place] : Reports: Renal Disease/Insufficiency Endocrine/Metabolic: Reports: Diabetes, type II, IDDM - Caffeine Use Caffeine Use: Reports: Coffee ED ROS GENERAL - Review of Systems Review Of Systems: See Below Constitutional: Reports: Fever, Chills, Malaise, Weakness HEENT: Reports: No Symptoms Respiratory: Reports: No Symptoms Cardiovascular: Reports: No Symptoms Endocrine: Reports: No Symptoms GI/Abdominal: Reports: No Symptoms : Reports: No Symptoms Musculoskeletal: Reports: Muscle Pain Skin: Reports: No Symptoms Neurological: Reports: No Symptoms Psychiatric: Reports: No Symptoms ED EXAM, SEPSIS - Physical Exam Exam: See Below Text/Narrative:: pt arrived with a temp of 102. She is very vague and appears to have difficulty thinking. She has total body aches. Exam Limited By: No Limitations General Appearance: Alert, Lethargic, Moderate Distress, Other (pt has a temp of 102. ) Ears: Normal TMs Nose: Normal Inspection Throat/Mouth: Normal Inspection Head: Atraumatic Neck: Normal Inspection Respiratory/Chest: No Respiratory Distress Cardiovascular: Regular Rate, Rhythm, Other (pt has the typical mechanical valve sound. ) GI/Abdominal Exam: Soft, Non-Tender (Female) Exam: Deferred Rectal (Female) Exam: Deferred Back: Normal Inspection Extremities: Normal Inspection Neurological: Alert, Oriented, Normal Cognition Psychiatric: Depressed Mood Skin: Warm Course - Vital Signs Last Recorded V/S: Last Vital Signs Temp 39.6 C H 02/28/19 03:12 Pulse 95 02/28/19 02:51 Resp 18 02/28/19 02:51 BP 90/42 L 02/28/19 02:51 Pulse Ox 97 02/28/19 02:51 - Orders/Labs/Meds Meds: Medications Discontinued Medications Generic Name Dose Route Start Last Admin Trade Name Rahel PRN Reason Stop Dose Admin Acetaminophen 1,000 mg 02/28/19 02:50 02/28/19 03:12 Tylenol PO 02/28/19 02:51 1,000 mg NOW ONE Administration Acetaminophen 1,000 mg 02/28/19 03:03 02/28/19 03:08 Tylenol Extra Strength PO 02/28/19 03:04 1,000 mg ONETIME ONE Administration Hydromorphone HCl 0.5 mg 02/28/19 03:03 02/28/19 03:23 Dilaudid IVPUSH 02/28/19 03:04 Not Given ONETIME ONE Ceftriaxone Sodium 2 gm/ 50 mls @ 100 mls/hr 02/28/19 02:36 02/28/19 03:00 Sodium Chloride IV 02/28/19 03:05 100 mls/hr ONETIME ONE Administration Sodium Chloride 1,000 mls @ 999 mls/hr 02/28/19 03:00 02/28/19 03:10 Normal Saline IV 999 mls/hr ASDIRECTED JESSEE Administration Sodium Chloride 1,000 mls @ 999 mls/hr 02/28/19 03:00 02/28/19 03:00 Normal Saline IV 999 mls/hr ASDIRECTED JESSEE Administration Lorazepam 0.5 mg 02/28/19 03:13 02/28/19 03:24 Ativan IVPUSH 02/28/19 03:14 0.5 mg ONETIME ONE Administration Lorazepam Confirm 02/28/19 03:16 02/28/19 03:24 Ativan Administered 02/28/19 03:17 Not Given Dose 2 mg .ROUTE .STK-MED ONE - Re-Assessments/Exams Free Text/Narrative Re-Assessment/Exam: 02/28/19 02:54 pt has a temp of 102. She is very vague with her answers. Pt was given 2 grams of rocephen and when she gets to [place] she will be given vancomycin. Departure - Departure Time of Disposition: 03:50 Disposition: DC/Tfer to Acute Hospital 02 Condition: Fair Clinical Impression: Sepsis, Status post infectious endocarditis - Discharge Information Referrals: PCP,None [Primary Care Provider] - Forms: ED Department Discharge Care Plan Goals: transfer to [facility] ER for further evaluation. Sepsis Event Note - Focused Exam Date Exam was Performed: 03/03/19 Time Exam was Performed: 07:57
[2019-02-28 02:52] VITALS: BP 90/42; PULSE 95
[2019-02-28] MEDS ORDERED: Sodium Chloride 0.9% 1,000 ML IV SCH ×2 (03:00)
[2019-02-28] MEDS ORDERED: Acetaminophen 500 MG Tab PO ONE (03:03)
[2019-02-28] MEDS ORDERED: HYDROmorphone 0.5 MG/0.5 ML Syringe IVPUSH ONE (03:03)
[2019-02-28] MEDS: Acetaminophen 325 MG Tab PO ONE ×2 (03:11→03:12)
[2019-02-28] MEDS ORDERED: LORazepam 2 MG/ML SDV IVPUSH ONE (03:13)
[2019-02-28] MEDS ORDERED: LORazepam 2 MG/ML SDV ONE (03:16)
== END 2019-02-28 03:20 ==
LOC: JP.ED 02:34
DX: T81.44XA Sepsis following a procedure, initial encounter (principal); A41.9 Sepsis, unspecified organism; F41.9 Anxiety disorder, unspecified; E66.9 Obesity, unspecified; Z68.36 Body mass index [BMI] 36.0-36.9, adult; Z79.01 Long term (current) use of anticoagulants; F32.9 Major depressive disorder, single episode, unspecified; Z79.82 Long term (current) use of aspirin; Z79.899 Other long term (current) drug therapy; Z79.84 Long term (current) use of oral hypoglycemic drugs; Z88.0 Allergy status to penicillin; Z88.5 Allergy status to narcotic agent
CPT/HCPCS: 96365; 96375; 99285; A9270 ×2; J0696; J2060; J7030 ×2; J7050; 87077